=== PATIENT | male | born 1950 | race Caucasian/White ===

== ENCOUNTER 2017-09-08 14:55 | Emergency (ER) | payer OTHER, MEDICARE ==
[~2017-09-08] VITALS: Ht 188 cm; Wt 97.0 kg
[~2017-09-08 14:55] MED LIST: B COTAB7 PO; KRISS PO; LISI-366 PO; LIVETAB PO; MILK500C PO; OXYC-360 PO; POTA595T2 PO
[2017-09-08 14:56] VITALS: BP 139/87; PULSE 84; RESP 18; TEMP 97.5; O2SAT 96
--- NOTE | 2017-09-08 16:16 | RADRPT ---
EXAM DATE/TIME: 09/08/2017 15:32 [facility] COMPARISON: No previous studies available for comparison. INDICATIONS : Headaches with nausea. RADIATION DOSE: 36.02 CTDIvol (mGy) MEDICAL HISTORY : Hepatitis C. Hypertension. Migraines. SURGICAL HISTORY : None. ENCOUNTER: Initial ACUITY: 1 day PAIN SCALE: 8/10 LOCATION: Bilateral cranial TECHNIQUE: Multiple contiguous axial images were obtained of the head. Using automated exposure control and adj ustment of the mA and/or kV according to patient size, radiation dose was kept as low as reasonably a chievable to obtain optimal diagnostic quality images. DICOM format image data is available electro nically for review and comparison. FINDINGS: CEREBRUM: The ventricles are normal for age. No evidence of midline shift, mass lesion, hemorrhage or acute in farction. No extra-axial fluid collections are seen. POSTERIOR FOSSA: The cerebellum and brainstem are intact. The 4th ventricle is midline. The cerebellopontine angle i s unremarkable. EXTRACRANIAL: The visualized portion of the orbits is intact. SKULL: The calvaria is intact. No evidence of skull fracture. CONCLUSION: 1. Negative noncontrast CT brain. Yannick Núñez MD on September 08, 2017 at 16:13 Board Certified Radiologist. This report was verified electronically.
[2017-09-08 17:06] LABS: AUTOMATED NEUTROPHIL # 4.1 TH/MM3 (1.8-7.7); BASOPHIL % 0.7 % (0.0-2.0); EOSINOPHIL # 0.5 TH/MM3 (0-0.4); EOSINOPHIL % 6.3 % (0.0-4.0); HEMATOCRIT 44.6 % (39.0-51.0); HEMOGLOBIN 15.6 GM/DL (13.0-17.0); LYMPHOCYTE # 2.1 TH/MM3 (1.0-4.8); MEAN CELL VOLUME 93.1 FL (80.0-100.0); MEAN CORPUSCULAR HEMOGLOBIN 32.5 PG (27.0-34.0); MEAN PLATELET VOLUME 8.9 FL (7.0-11.0); MONO % 7.9 % (0.0-8.0); MONOCYTE # 0.6 TH/MM3 (0-0.9); NEUT % 56.1 % (16.0-70.0); PLATELET COUNT 194 TH/MM3 (150-450); RED BLOOD COUNT 4.79 MIL/MM3 (4.50-5.90); RED CELL DISTRIBUTION WIDTH 12.7 % (11.6-17.2); WHITE BLOOD COUNT 7.2 TH/MM3 (4.0-11.0)
[2017-09-08 17:18] LABS: PROTHROMBIN TIME - PATIENT 10.6 SEC (9.8-11.6)
[2017-09-08 17:21] LABS: ALBUMIN 4.1 GM/DL (3.4-5.0); AST (GOT) 26 U/L (15-37); BICARBONATE 28.5 MEQ/L (21.0-32.0); BLOOD UREA NITROGEN 30 MG/DL (7-18); CALCIUM 9.2 MG/DL (8.5-10.1); CHLORIDE 99 MEQ/L (98-107); CREATININE 1.36 MG/DL (0.60-1.30); GLOMERULAR FILTRATION RATE 52 ML/MIN (>89); GLUCOSE,RANDOM 95 MG/DL (74-106); SODIUM (NA) 135 MEQ/L (136-145)
[2017-09-08 17:22] LABS: ALT (GPT) 37 U/L (12-78)
[2017-09-08 17:24] LABS: ALKALINE PHOSPHATASE 57 U/L (45-117); TOTAL BILIRUBIN ADULT 0.6 MG/DL (0.2-1.0); TOTAL PROTEIN 7.8 GM/DL (6.4-8.2)
[2017-09-08] MEDS ORDERED: PROCHLORPERAZINE INJ 10 MG/2 ML VIAL IVP ONE (18:30)
[2017-09-08] MEDS ORDERED: KETOROLAC TROMETHAMINE 30 MG/ML (IVP) VIAL IVP ONE (18:30)
[2017-09-08] MEDS ORDERED: diphenhydrAMINE HCL 50 MG/ML VIAL IVP ONE (18:30)
[2017-09-08] MEDS ORDERED: SODIUM CHLOR 0.9% 1000 ML INJ 1,000 ML IV ONE (18:30)
--- NOTE | 2017-09-08 18:38 | PD ---
HPI Chief Complaint: Headache Time Seen by Provider: 17:49 Travel History International Travel<30 days: No Contact w/Intl Traveler<30days: No Traveled to known affect area: No History of Present Illness HPI 66-year-old male with PMH of HTN, chronic low back pain, migraine headaches presents to the ED for evaluation of four-day history of low blood pressures, headache, neck pain, shooting, electrical type pain down the left arm. Patient states that the headaches are the same as his normal migraines, begin with vision difficulties and photophobia. The patient denies chest pain, palpitations, shortness of breath, abdominal pain, nausea, vomiting, dysuria. He denies weakness in the extremities. He states that he normally takes sumatriptan and meclizine for his headaches. He states he's been treating without resolution of his symptoms. He has stopped taking his antihypertensive medications. He states that a few days prior to onset of these symptoms he had a stomach virus with multiple episodes of forceful vomiting and watery stools. States the symptoms resolved 3 or 4 days ago. He was evaluated at the [facility] today and sent to this ED for further evaluation. is at bedside and states that she's noticed he has had an unsteady gait for the last few days. PFSH Past Medical History Arthritis: Yes Blood Disorders: No Anxiety: Yes Depression: Yes Cancer: No Cardiovascular Problems: Yes Diabetes: No Endocrine: No Gastrointestinal Disorders: Yes Genitourinary: No Hepatitis: Yes (HEP C ) Hiatal Hernia: No Hypertension: Yes Immune Disorder: No Musculoskeletal: Yes (DEGEN DISC DISEASE) Neurologic: No Psychiatric: Yes Reproductive: No Respiratory: Yes Thyroid Disease: No Past Surgical History Abdominal Surgery: No AICD: No Arteriovenous Shunt: No Cardiac Surgery: No Ear Surgery: No Endocrine Surgery: No Eye Surgery: No Genitourinary Surgery: No Gynecologic Surgery: No Insulin Pump: No Joint Replacement: No Oral Surgery: No Pacemaker: No Thoracic Surgery: No Social History Alcohol Use: Yes (1-2 TIMES PER WEEK) Tobacco Use: No Substance Use: No Allergies-Medications (Allergen,Severity, Reaction): Coded Allergies: No Known Allergies (Verified , 08/07/11) Reported Meds & Prescriptions Reported Meds & Active Scripts Active Ibuprofen 800 Mg Tab 800 Mg PO Q8H Flexeril (Cyclobenzaprine HCl) 10 Mg Tab 10 Mg PO TID Prednisone 20 Mg Tab 40 Mg PO DAILY Take 40 mg (2 tablets) daily for 5 days Reported Lisinopril 40 mg (Lisinopril) 40 Mg Tab 40 Mg PO DAILY Percocet (Oxycodone/Acetaminophen) 5 Mg/325 Mg Tab 1 Tab PO Q8HPRN FOR PAIN Potassium Gluconate 595 Mg Tab 99 Mg PO DAILY Milk Thistle (Milk Thistle (Silybum Marianum) 500 Mg Cap 1,000 Mg PO DAILY [Liverite] PO DAILY B Complex/C (Vitamin B Complex/Vitamin C) Tab 1 Tab PO DAILY [Chilean Cristy] PO DAILY Review of Systems Except as stated in HPI: all other systems reviewed are Neg Physical Exam Narrative GENERAL: Well-nourished, well-developed white male in no acute distress. SKIN: Focused skin assessment warm/dry. HEAD: Normocephalic. EYES: No scleral icterus. No injection or drainage. ENT: Pearly lira tympanic membranes bilaterally. Bilateral serous effusions. Or panic without erythema, edema, exudate. NECK: Supple, trachea midline. No JVD or lymphadenopathy.+ Midline tenderness to palpation of the posterior neck. Positive midline tenderness in the paraspinal musculature of the cervical spine. CARDIOVASCULAR: Regular rate and rhythm without murmurs, gallops, or rubs. RESPIRATORY: Breath sounds clear and equal bilaterally. No accessory muscle use. GASTROINTESTINAL: Abdomen soft, non-tender, nondistended. Active bowel sounds. MUSCULOSKELETAL: No cyanosis, or edema. NEUROLOGICAL: Awake and alert. Cranial nerves II through XII intact. Motor and sensory grossly within normal limits. Five out of 5 muscle strength in all muscle groups. Normal speech. BACK: Nontender without obvious deformity. No CVA tenderness. Data Data Last Documented VS Vital Signs Date Time Temp Pulse Resp B/P (MAP) Pulse Ox O2 Delivery O2 Flow Rate FiO2 09/08/17 14:56 97.5 84 18 139/87 (104) 96 Room Air Orders Orders Complete Blood Count With Diff (09/08/17 15:02) Comprehensive Metabolic Panel (09/08/17 15:02) Prothrombin Time / Inr (Pt) (09/08/17 15:02) Act Partial Throm Time (Ptt) (09/08/17 15:02) Ct Brain W/O Iv Contrast(Rout) (09/08/17 ) Sodium Chlor 0.9% 1000 Ml Inj (Ns 1000 M (09/08/17 18:30) Ketorolac Inj (Toradol Inj) (09/08/17 18:30) Prochlorperazine Inj (Compazine Inj) (09/08/17 18:30) Diphenhydramine Inj (Benadryl Inj) (09/08/17 18:30) Ct Cerv Spine W/O Contrast (09/08/17 ) Iv Access Insert/Monitor (09/08/17 18:21) Troponin I (09/08/17 18:38) Electrocardiogram (09/08/17 ) Radiology Film Requests (09/08/17 ) Ed Discharge Order (09/08/17 21:48) Labs Laboratory Tests Test 09/08/17 16:25 White Blood Count 7.2 TH/MM3 Red Blood Count 4.79 MIL/MM3 Hemoglobin 15.6 GM/DL Hematocrit 44.6 % Mean Corpuscular Volume 93.1 FL Mean Corpuscular Hemoglobin 32.5 PG Mean Corpuscular Hemoglobin Concent 35.0 % Red Cell Distribution Width 12.7 % Platelet Count 194 TH/MM3 Mean Platelet Volume 8.9 FL Neutrophils (%) (Auto) 56.1 % Lymphocytes (%) (Auto) 29.0 % Monocytes (%) (Auto) 7.9 % Eosinophils (%) (Auto) 6.3 % Basophils (%) (Auto) 0.7 % Neutrophils # (Auto) 4.1 TH/MM3 Lymphocytes # (Auto) 2.1 TH/MM3 Monocytes # (Auto) 0.6 TH/MM3 Eosinophils # (Auto) 0.5 TH/MM3 Basophils # (Auto) 0.0 TH/MM3 CBC Comment DIFF FINAL Differential Comment Prothrombin Time 10.6 SEC Prothromb Time International Ratio 1.0 RATIO Activated Partial Thromboplast Time 26.4 SEC Blood Urea Nitrogen 30 MG/DL Creatinine 1.36 MG/DL Random Glucose 95 MG/DL Total Protein 7.8 GM/DL Albumin 4.1 GM/DL Calcium Level 9.2 MG/DL Alkaline Phosphatase 57 U/L Aspartate Amino Transf (AST/SGOT) 26 U/L Alanine Aminotransferase (ALT/SGPT) 37 U/L Total Bilirubin 0.6 MG/DL Sodium Level 135 MEQ/L Potassium Level 3.9 MEQ/L Chloride Level 99 MEQ/L Carbon Dioxide Level 28.5 MEQ/L Anion Gap 8 MEQ/L Estimat Glomerular Filtration Rate 52 ML/MIN Troponin I LESS THAN 0.02 NG/ML MDM Medical Decision Making Medical Screen Exam Complete: Yes Emergency Medical Condition: Yes Differential Diagnosis Radiculopathy versus metabolic derangement versus muscle spasm versus ICH versus ACS versus dehydration versus migraine headache versus other Narrative Course 66-year-old male with PMH of HTN, chronic low back pain, migraine headaches presents to the ED for evaluation of four-day history of low blood pressures, headache, neck pain, shooting, electrical type pain down the left arm. Headache same as previous. Recent history of GI virus with violent vomiting a few days ago. [facility]. Patient afebrile, BP 139/87 on presentation. Physical exam reveals a nontoxic- appearing white male in no acute distress. No focal neuro deficits noted. Chest CT AB. Abdomen soft and nontender. EKG rate 53, sinus bradycardia. DE interval 166, QRS 114, QT C4 47 ms. Borderline LAD. No acute ST changes. Reviewed by Dr. Terrazas. Troponin is negative 1. CBC: No anemia or leukocytosis. INR: 1.1. CMP: BUN 30, creatinine 1.36. GFR 52. CT brain. Negative noncontrast CT per radiology read. CT cervical spine: Advanced multilevel degenerative spondylosis of the cervical spine most prominently at C5 through 7 with moderate spinal canal stenosis and bilateral variable up to moderate severe neural foraminal narrowing. I discussed results of the workup with the patient. We'll treat with a short course of anti-inflammatories and muscle relaxants. Patient instructed to take the medications as prescribed, follow with a neurologist. He is provided a CD admission of his radiological studies as well as a paper copy. We discussed reasons to return to the ED. He is stable and discharged home. Diagnosis Primary Impression: Cervical radiculopathy due to degenerative joint disease of spine Additional Impression: Migraine Qualified Codes: G43.909 - Migraine, unspecified, not intractable, without status migrainosus Referrals: Mickey Diaz MD, Federico Carlos MD Patient Instructions: Cervical Radiculopathy (ED), General Instructions Additional Instructions: Rest, hydrate. Resume at home medications as discussed. Begin taking prednisone, ibuprofen and Flexeril as prescribed. Follow-up with the neurologist as discussed. Return to the ED for worsening symptoms or any urgent or emergent medical condition. Med/Other Pt SpecificInfo: Prescription(s) given Scripts Ibuprofen (Ibuprofen) 800 Mg Tab 800 MG PO Q8H, #15 TAB 0 Refills Prov: Pablo Vallecillo MD 09/08/17 Cyclobenzaprine (Flexeril) 10 Mg Tab 10 MG PO TID for Muscle Spasm, #15 TAB 0 Refills Prov: Pablo Vallecillo MD 09/08/17 Prednisone (Prednisone) 20 Mg Tab 40 MG PO DAILY, #10 TAB 0 Refills Take 40 mg (2 tablets) daily for 5 days Prov: Pablo Vallecillo MD 09/08/17 Disposition: 01 DISCHARGE HOME Condition: Stable Clare Howell Sep 08, 2017 18:38
[2017-09-08] MEDS ORDERED: LOSARTAN 50 MG TAB PO ONE (20:45)
--- NOTE | 2017-09-08 20:59 | RADRPT ---
EXAM DATE/TIME: 09/08/2017 20:15 [facility] COMPARISON: No previous studies available for comparison. INDICATIONS : Cephalgia, radiculopathy. RADIATION DOSE: 24.35 CTDIvol (mGy) MEDICAL HISTORY : Hypertension. DDD. SURGICAL HISTORY : None. ENCOUNTER: Initial ACUITY: 3 weeks PAIN SCALE: 8/10 LOCATION: neck TECHNIQUE: Volumetric scanning of the cervical spine was performed. Multiplanar reconstructions in the sagittal, coronal and oblique axial planes were performed. Using automated exposure control and adjustment o f the mA and/or kV according to patient size, radiation dose was kept as low as reasonably achievable to obtain optimal diagnostic quality images. DICOM format image data is available electronically f or review and comparison. FINDINGS: VERTEBRAE: Normal vertebral body height. ALIGNMENT: Reversal of normal cervical lordosis in the upper cervical spine. C2-C3: The bony spinal canal is normal in size. No evidence of disc bulge or herniation. The neural forami na are bilaterally patent. C3-C4: Disc space loss with vacuum disc phenomenon and posterior uncovertebral osteophytes. Bony central can al is patent. Bilateral facet arthropathy. Mild left neural foraminal stenosis. C4-C5: Disc space loss with posterior disc osteophyte complex. Facet arthropathy. Mild effacement of the ant erior thecal sac. Mild bilateral neural foraminal narrowing. C5-C6: Disc space narrowing with prominent posterior disc osteophyte complex and left facet arthropathy. Eff acement of the anterior thecal sac and left anterior lateral recess. Central canal narrowed to approx imately 8 mm. Moderate to severe left and [id number] right neural foraminal narrowing secondary to osteophytes. C6-C7: Disc space loss with prominent posterior disc osteophyte complex. Effacement of the anterior thecal s ac the central canal measuring 9 mm. Moderate to severe bilateral neural foraminal narrowing secondar y to osteophytes. C7-T1: The bony spinal canal is normal in size. No evidence of disc bulge or herniation. The neural forami na are bilaterally patent. CONCLUSION: 1. Advanced multilevel degenerative spondylosis of the cervical spine most prominently at C5-7 with m oderate spinal canal stenosis and bilateral variable up to moderate-severe neural foraminal narrowing . 2. Please see above for detailed description of each level. Mendoza Mcpherson MD on September 08, 2017 at 20:52 Board Certified Radiologist. This report was verified electronically.
[2017-09-08] MEDS ORDERED: PRED20 PO (21:25)
[2017-09-08] MEDS ORDERED: IBUP1TAB7 PO (21:25)
[2017-09-08] MEDS ORDERED: CYCL10TA PO (21:25)
[2017-09-08 22:05] VITALS: BP 124/84
--- NOTE | 2017-09-09 08:02 | EKG ---
Date Performed: 09/08/2017 Time Performed: 19:39:35 PTAGE: 66 years EKG: SINUS BRADYCARDIA POSSIBLE LEFT ATRIAL ENLARGEMENT BORDERLINE LEFT AXIS DEVIATION MODERATE INTRAVENTRICULAR CONDUCTION DELAY BORDERLINE ECG PREVIOUS TRACING : 06/08/2006 20.47 DOCTOR: Constantine Mari Interpretating Date/Time 09/09/2017 08:01:55
== END 2017-09-08 22:30 | disposition home or self-care (01) ==
LOC: NEPE 14:55
DX: M54.12 Radiculopathy, cervical region (principal); G43.909 Migraine, unspecified, not intractable, without status migrainosus; M50.30 Other cervical disc degeneration, unspecified cervical region; R94.31 Abnormal electrocardiogram [ECG] [EKG]; B19.20 Unspecified viral hepatitis C without hepatic coma; I10 Essential (primary) hypertension; G89.29 Other chronic pain
CPT/HCPCS: 70450; 72125; 80053; 84484; 85025; 85610; 85730; 93005; 96361; 96374; 96375; 99285; J0780; J1200; J1885; J7030